=== PATIENT | female | born 1960 | race Caucasian/White ===

== ENCOUNTER 2023-05-24 16:14 | Emergency (ER) | payer SELFPAY ==
[2023-05-24 16:44] VITALS: BP 118/76; PULSE 84; RESP 19; TEMP 36.7; O2SAT 97; BMI 26.6
--- NOTE | 2023-05-24 16:49 | XRR_ITS ---
PROCEDURE INFORMATION: Exam: XR Left Knee Exam date and time: 05/24/2023 5:20 PM Age: 63 years old Clinical indication: Injury or trauma; Fall TECHNIQUE: Imaging protocol: Radiologic exam of the left knee. Views: 1 or 2 views. COMPARISON: No relevant prior studies available. FINDINGS: Bones/joints: There is a punch comminuted fracture of the lateral tibial plateau exiting the tibial metaphysis and between both tibial intercondylar spines. There is a lipohemarthrosis left knee joint. No visualized fracture of the femur patella or proximal fibula. Soft tissues: There is soft tissue edema adjacent to the tibia fracture. XR/XR knee LT 1-2V [id number] IMPRESSION: There is a punch comminuted fracture of the lateral tibial plateau exiting the tibial metaphysis and between both tibial intercondylar spines.
--- NOTE | 2023-05-24 16:49 | XRR_ITS ---
PROCEDURE INFORMATION: Exam: XR Left Tibia and Fibula Exam date and time: 05/24/2023 5:30 PM Age: 63 years old Clinical indication: Injury or trauma; Fall TECHNIQUE: Imaging protocol: Radiologic exam of the left tibia and fibula. Views: 2 views. COMPARISON: CR (LOW EXM, ) 05/24/2023 5:20 PM FINDINGS: Bones/joints: There is a markedly comminuted fracture of the distal tibial metadiaphysis with marked comminution of the articular surface of the tibiotalar joint. There is also a nondisplaced fracture of the posterior malleolus and transverse fracture of the distal fibula. Comminuted and impacted punch fracture of the lateral tibial plateau at the knee joint is also visualized. No additional fracture of the proximal or midshaft fibula. No dislocation. Soft tissues: There is soft tissue edema adjacent to both the proximal and distal tibia fractures. XR/XR tibia fibula LT 2V [id number] IMPRESSION: 1. There is a markedly comminuted fracture of the distal tibial metadiaphysis with marked comminution of the articular surface of the tibiotalar joint. There is also a nondisplaced fracture of the posterior malleolus and transverse fracture of the distal fibula. 2. Comminuted and impacted punch fracture of the lateral tibial plateau at the knee joint is also visualized. Please see the CT extremity report of the same day.
--- NOTE | 2023-05-24 16:49 | XRR_ITS ---
PROCEDURE INFORMATION: Exam: XR Left Foot Exam date and time: 05/24/2023 5:41 PM Age: 63 years old Clinical indication: Injury or trauma; Fall TECHNIQUE: Imaging protocol: Radiologic exam of the left foot. Views: 3 or more views. COMPARISON: CR (LOW EXM, ) 05/24/2023 5:35 PM FINDINGS: Bones/joints: Markedly comminuted fracture of the distal tibia extending into the tibiotalar joint is again identified. Transverse fracture of the distal fibula and nondisplaced posterior malleolar fracture. Lisfranc joint alignment is intact. No additional fracture in the midfoot or forefoot. Soft tissues: There is abundant soft tissue edema surrounding the ankle fractures. XR/XR foot LT min 3V* [id number] IMPRESSION: 1. Markedly comminuted fracture of the distal tibia extending into the tibiotalar joint is again identified. Transverse fracture of the distal fibula and nondisplaced posterior malleolar fracture. 2. No additional fracture in the midfoot or forefoot.
--- NOTE | 2023-05-24 16:49 | XRR_ITS ---
PROCEDURE INFORMATION: Exam: XR Left Ankle Exam date and time: 05/24/2023 5:35 PM Age: 63 years old Clinical indication: Injury or trauma; Fall TECHNIQUE: Imaging protocol: Radiologic exam of the left ankle. Views: 3 or more views. COMPARISON: CR (LOW EXM, ) 05/24/2023 5:30 PM FINDINGS: Bones/joints: There is a markedly comminuted and impacted fracture of the distal central and medial tibia plafond with marked deformity of the articular surface of the tibiotalar joint. Multiple fracture lines are also identified in the distal tibial metadiaphysis. There is a transverse fracture of the distal fibula and nondisplaced fracture of the posterior malleolus. No dislocation. No osteochondral lesion of the talus. Soft tissues: There is abundant soft tissue edema. XR/XR ankle LT min 3V* [id number] IMPRESSION: 1. There is a markedly comminuted and impacted fracture of the distal central and medial tibia plafond with marked deformity of the articular surface of the tibiotalar joint. 2. There is a transverse fracture of the distal fibula and nondisplaced fracture of the posterior malleolus.
[2023-05-24] MEDS: ibuprofen 800 mg tablet PO (17:11)
[2023-05-24 17:56] VITALS: O2SAT 99
--- NOTE | 2023-05-24 17:59 | CTR_ITS ---
PROCEDURE INFORMATION: Exam: CT Left Lower Extremity Without Contrast Exam date and time: 05/24/2023 6:19 PM Age: 63 years old Clinical indication: Injury or trauma; Fall; Blunt trauma; Left; Injury details: Patient tripped and fell on ground today. Fractures to both knee and ankle. ; Additional info: Tibial plateau fracture, bimalleolar versus pilon fracture TECHNIQUE: Imaging protocol: CT of the left lower extremity without contrast was performed. Radiation optimization: All CT scans at this facility use at least one of these dose optimization techniques: automated exposure control; mA and/or kV adjustment per patient size (includes targeted exams where dose is matched to clinical indication); or iterative reconstruction. REPORTING DATA: Count of CT and Cardiac NM exams in prior 12 months: This patient has received 0 known CTs and 0 known cardiac nuclear medicine studies in the 12 months prior to the current study. COMPARISON: CR (LOW EXM, ) 05/24/2023 5:41 PM RADIATION DOSE METRICS: Total DLP (mGy-cm): 880.41 FINDINGS: Bones/joints: There is a lipohemarthrosis of the knee joint. There is a comminuted dive punch fracture of the lateral tibial plateau with maximal depression of the articular surface measuring 5 mm. Fracture of the lateral tibial plateau exits the metaphysis of the tibia and extends into the knee joint through both intercondylar spines. Coronal images also demonstrate marked subchondral density paralleling the articular surface of the medial tibia compatible with microtrabecular impaction fracture without violation of the articular cortex or significant depression of the articular surface. There is and intra-articular markedly comminuted and impacted fracture of the distal tibia with marked destruction of the majority of the of the articular surface. Maximal depression of the articular surfaces at the ankle joint is 1 cm and there is a large divot of the central and medial tibial articular surface measuring 2.4 x 2.5 cm. There is medial angulation and comminution of the medial malleolus. There is a portion of the anterolateral articular surface of the tibia that is intact measuring 3.1 x 2.7 cm. Posterior malleolar fracture is noted with less than 2 mm depression of the articular surface. There is a comminuted fracture of the distal fibula metaphysis. No acute fracture of the visualized talus or calcaneus. No fracture of the proximal or midshaft fibula. No acute fracture of the femur or patella. There is lateral tilting and subluxation of the patella. Soft tissues: There is abundant soft tissue edema adjacent to the multiple fractures. Other findings: Segond type fracture fragment is noted lateral to the tibia. CT/CT lower leg LT wo con* [id number] IMPRESSION: 1. There is a comminuted punch fracture of the lateral tibial plateau with maximal depression of the articular surface measuring 5 mm. This fracture exits through the tibial spines and lateral tibial metaphysis. 2. Coronal images also demonstrate marked subchondral density paralleling the articular surface of the medial tibia compatible with microtrabecular impaction fracture without violation of the articular cortex or significant depression of the medial articular surface. 3. There is and intra-articular markedly comminuted and impacted/ punch fracture of the distal tibia with marked destruction of the majority of the of the articular surface. Maximal depression of the articular surfaces at the ankle joint is 1 cm and there is a large divot of the central and medial tibial articular surface measuring 2.4 x 2.5 cm. 4. Comminuted fracture distal fibula. No fracture of the proximal fibula.
[2023-05-24 18:47] VITALS: RESP 18
--- NOTE | 2023-05-24 18:47 | ED_ITS ---
HPI - Extremity Problem General: Chief complaint: Extremity Injury, Lower Stated complaint: LT ankle/Knee injury Time Seen by Provider: 05/24/23 16:49 History of Present Illness: Vale Germain is a 63-year-old female that presents to the emergency department with complaints of left ankle and knee pain. Patient reports that she stepped into a hole and felt/heard a loud pop. She had immediate pain in the ankle and knee and was unable to get up unassisted. Patient was unable to ambulate. She is usually ambulatory at baseline without assistive devices. Patient has swelling noted to the lateral aspect of the ankle with ecchymosis present There are no open wounds Neurovascularly intact Associated symptoms: Deny chest pain, fever(s) or rash Review of Systems General: Reports: 10 or more systems reviewed and unremarkable except in HPI and below Const: Denies: fever(s), chills, change in appetite, change in weight, fatigue or malaise Eyes: Denies: change in vision, eye discomfort, eye discharge or eye redness ENMT: Denies: throat pain, enlarged tonsils, odynophagia, hoarseness, ear or mastoid pain, ear discharge, change in hearing, tinnitus, nasal discharge, nasal congestion, post nasal drip or sinus pain Card: Denies: chest pain, palpitations, irregular heart rhythm, edema, dyspnea on exertion, orthopnea or leg pain with exertion Resp: Denies: dyspnea, productive cough, non-productive cough, wheezing, stri maria luisa or chest congestion GI: Denies: abdominal pain, nausea, vomiting, dysphagia, diarrhea, constipation, bloating, GI cramping or hematochezia : Denies: flank pain, difficulty voiding, dysuria, urinary frequency, urinary urgency, urinary hesitancy, oliguria or hematuria Musc: Denies: neck pain, back pain, extremity pain, joint pain, joint swelling, joint redness, joint warmth or muscle weakness Skin/Breast: Denies: rash, pruritus, erythema, photosensitivity or new lesions Neuro: Denies: headache(s), numbness in extremities, weakness in extremities, sensory changes, lack of coordination, difficulty walking, frequent falls, dizziness, confusion, Slurred speech present, difficulty communicating thoughts, seizure-like activity or involuntary movements Endo: Denies: polyuria, polydipsia or tired all the time Liborio/Lymph: Denies: easy bruising or easy bleeding Physical Exam Const: COMMON NORMALS: no acute distress, patient oriented x3 and alert GENERAL APPEARANCE: cooperative ORIENTATION/CONSCIOUSNESS: Yes awake, Yes oriented to person, Yes oriented to place and Yes oriented to time HENMT: COMMON NORMALS: normocephalic and atraumatic HEAD & SCALP: normocephalic and atraumatic FACE & SINUS: normal facial exam MOUTH: Normal oral and palatal mucosa present THROAT: posterior oropharynx normal Eye: COMMON NORMALS: Equal, round and reactive pupils present, EOMs intact bilaterally, conjunctivae normal and no scleral icterus GENERAL EYE: appearance normal, both eyes and all related structures ALIGNMENT: Yes alignment normal PERIORBITAL: periorbital findings normal CONJUNCTIVA: Yes conjunctivae normal PUPIL: Yes Equal, round and reactive pupils present Neck/C-Spine: COMMON NORMALS: full ROM GENERAL: Yes normal visual inspection Lymph: LYMPHATIC: no lymphadenopathy noted Chest: COMMONS NORMALS: normal inspection of the chest Breast/axilla inspection: Yes no chest deformity, asymmetry, normal contours, no nodules, masses, tenderness Resp: COMMON NORMALS: normal respiratory effort, No retractions, No use of accessory muscles and clear to auscultation bilaterally EFFORT & INSPECTION: Yes able to speak in complete sentences and Yes symmetric chest movement AUSCULTATION: clear to auscultation bilaterally Cardio: COMMON NORMALS: regular rate, regular rhythm and Peripheral pulses 2+ throughout RATE: regular rate RHYTHM: regular rhythm PERIPHERAL PULSES: Peripheral pulses 2+ throughout GI: COMMON NORMALS: Normal to inspection, nondistended, normoactive bowel sounds present, Soft to palpation, non-tender and No hepatosplenomegaly present INSPECTION: Yes normal to inspection AUSCULTATION: Yes normoactive bowel sounds PALPATION: Yes Soft to palpation and Yes No hepatosplenomegaly present RECTAL EXAM: deferred Extremity: COMMON NORMALS: normal to inspection NARRATIVE EXTREMITY EXAM: Left lower extremity: Skin is clean dry and intact ecchymosis noted to the lateral aspect of the left ankle. No tenting of skin. No lacerations. Patient is tender palpation over the knee and ankle. Patient is able to perform a straight leg raise Patient is able to flex and extend the knee to some degree although it causes considerable pain Patient is able to dorsiflex plantarflex the foot to some degree but this causes a lot of pain Patient is able to dorsiflex great toes Sensation is intact to light touch at medial, lateral, dorsal, plantar surface of the foot and first webspace DP pulses palpable and cap refills less than 3 seconds GENERAL: Yes normal exam except as noted Neuro: COMMON NORMALS: patient oriented x3 SENSORIUM/ORIENTATION: Yes alert, Yes oriented to person, Yes oriented to place and Yes oriented to time CRANIAL NERVES: Yes CN normal except as noted Psych: COMMON NORMALS: mental status grossly normal, Normal thought process present, cooperative, activity/motor behavior normal, denies homicidal ideation and denies suicidal ideation THOUGHT PROCESS: Normal thought process present Skin: COMMON NORMALS: no rashes or lesions noted, no wounds and turgor normal GENERAL SKIN EXAM: no rashes or lesions noted and turgor normal Procedures Orthopedic Splinting/Casting Injury #1: Lower Extremity Injury Location: knee and ankle Additional Comments: Patient has been diagnosed with a lateral tibial plateau fracture and a severely comminuted pilon fracture. She is placed in a posterior long-leg splint and will be transferred by EMS to [facility] where she will see Ortho trauma physician. Course Vital Signs: Vital signs: Vital Signs Temperature 98.1 F 05/24/23 16:44 Pulse Rate 73 05/24/23 18:57 Respiratory Rate 18 05/24/23 18:47 Blood Pressure 124/66 05/24/23 18:57 Pulse Oximetry 100 05/24/23 18:57 Oxygen Delivery Me thod Room Air 05/24/23 18:57 MDM - Extremity (Nontraumatic) Medical Decision Making Was evaluated in the emergency department for orthopedic injury/pain. Differential diagnoses include fracture, fracture dislocation, trimal/kenneth, none, tibial plateau, we will shaft fracture, Maisonneuve fracture. Contusion, abrasions, effusions Underwent XR imaging of the left lower extremity. Imaging occluded XR foot, ankle, tibia, knee. Imaging reveals comminuted fracture of the distal tibia; appears as though it could be a pilon fracture. She also has a tibial plateau fracture. CT of the lower extremity was obtained. I did speak with Dr. Carrillo about imaging. Recommends transfer to Ortho trauma provider. Did speak with patient about which direction she would like to go. She is ultimately decided [facility] in [place]. I have discussed imaging with Ortho trauma on-call and they have reviewed the imaging. They would be happy to see the patient if she was transferred. We are reaching out to transfer center to arrange transfer. Patient updated . Patient has been excepted by [facility] physician Dr. Priscila Fan with Ortho to see. Patient has agreed to transport by EMS with her following by private vehicle Posterior long-leg splint applied Lab Data Radiology Impressions Lower Extremity CT 05/24/23 17:59 IMPRESSION: 1. There is a comminuted punch fracture of the lateral tibial plateau with maximal depression of the articular surface measuring 5 mm. This fracture exits through the tibial spines and lateral tibial metaphysis. 2. Coronal images also demonstrate marked subchondral density paralleling the articular surface of the medial tibia compatible with microtrabecular impaction fracture without violation of the articular cortex or significant depression of the medial articular surface. 3. There is and intra-articular markedly comminuted and impacted/ punch fracture of the distal tibia with marked destruction of the majority of the of the articular surface. Maximal depression of the articular surfaces at the ankle joint is 1 cm and there is a large divot of the central and medial tibial articular surface measuring 2.4 x 2.5 cm. 4. Comminuted fracture distal fibula. No fracture of the proximal fibula. Discharge Plan Discharge Patient Disposition: Transfer to ED Clinical Impression: Closed fracture of tibial plateau, Closed fracture of lateral malleolus, Closed pilon fracture Condition: Stable Referrals: Alisa De León PA [Primary Care Provider] - Coding Level of Care Code ED [employer] for Vivienne Fontanez
[2023-05-24 18:57] VITALS: BP 124/66; PULSE 73; O2SAT 100
[2023-05-24 20:36] VITALS: BP 112/74; PULSE 77; RESP 18; O2SAT 95
== END 2023-05-24 21:58 ==
PROVIDERS: Emergency Provider Nurse Practitioner; PCP Physician Assistant
DX: S82.252A Displaced comminuted fracture of shaft of left tibia, initial encounter for closed fracture (principal); S82.872A Displaced pilon fracture of left tibia, initial encounter for closed fracture; S82.62XA Displaced fracture of lateral malleolus of left fibula, initial encounter for closed fracture; W18.42XA Slipping, tripping and stumbling without falling due to stepping into hole or opening, initial encounter
CPT/HCPCS: 29505; 73560; 73590; 73610; 73630; 73700; 99284

== ENCOUNTER 2023-07-23 12:41 | Outpatient (CLI) | payer SELFPAY ==
--- NOTE | 2023-07-23 12:45 | XR_ITS ---
WS: [id number] SCREENING DEXA SCAN [employer] CLINICAL INFORMATION: Postmenopausal COMPARISON: None. FINDINGS: The L1-L4 bone mineral density measures 1.029 g/cm2. This corresponds to a T score score of -1.3 and Z score of 0.1. Left femoral neck bone mineral density measures 0.712 g/cm2. This corresponds to a T score of -2.3 an d Z score of -1.3. Right femoral neck bone mineral density measures 0.692 g/cm2. This corresponds to a T score -2.5of an d Z score of -1.5. Mean femoral neck bone mineral density measures 0.702 g/cm2. This corresponds to a T score of -2.4 an d Z score of -1.4. IMPRESSION: Osteopenia lumbar spine. Osteopenia femoral necks at the upper end of the range approaching osteoporo sis. Patient's FRAX calculated 10 year probability for major osteoporotic fracture is 24.3% and osteoporot ic hip fracture is 6.5%.
== END 2023-07-23 12:42 | disposition home or self-care (01) ==
LOC: RAD 12:41
PROVIDERS: PCP Physician Assistant; Visit Provider Nurse Practitioner
DX: Z13.820 Encounter for screening for osteoporosis (principal); Z78.0 Asymptomatic menopausal state; M85.89 Other specified disorders of bone density and structure, multiple sites
CPT/HCPCS: 77080

== ENCOUNTER 2024-05-03 08:31 | Outpatient (CLI) | payer MEDICARE, SELFPAY ==
--- NOTE | 2024-05-03 08:36 | FL_ITS ---
WS: [id number] Examination: FL barium swallow [id number] Reason for Exam: DYSPHAGIA Date: May 03, 2024 Comparison: None. Findings: Initial single column thin barium esophagram was performed. Contrast passed freely through the esopha grey. No obstruction or stricture was appreciated. Next a air-contrast esophagram was performed with multiple obliquities. Barium passes freely from the mouth to the stomach without obstruction. There is no stricture or diverticulum. No hiatal hernia was appreciated. Reflux was not identified. FL/FL barium swallow [id number] Impression: There is no stricture or diverticulum identified. Esophagus appears grossly unr emarkable
== END 2024-05-03 08:32 | disposition home or self-care (01) ==
LOC: RAD 08:31
PROVIDERS: PCP Physician Assistant; Visit Provider Specialist
DX: R13.10 Dysphagia, unspecified (principal)
CPT/HCPCS: 74220

== ENCOUNTER 2024-06-30 08:36 | Outpatient (CLI) | payer MEDICARE, SELFPAY ==
--- NOTE | 2024-06-30 08:39 | MM_ITS ---
WS: [id number] DIAGNOSTIC BILATERAL DIGITAL BREAST TOMOSYNTHESIS MAMMOGRAPHY WITH CAD HISTORY: HX OF BREAST TUMOR COMPARISON: None available. TECHNIQUE: Bilateral craniocaudad, mediolateral oblique, and mediolateral views are submitted with to mosynthesis and SM. Computer aided detection utilized. Breast composition: The breasts are extremely dense, which lowers the sensitivity of mammography. Numerous scattered asymmetries and calcifications within each breast. No distortion. Breasts are very dense. MM/MM diag BI tomosynthesis [id number] IMPRESSION: BI-RADS: 2 - Benign FOLLOW UP: 1 Year Follow-up
== END 2024-06-30 08:37 | disposition home or self-care (01) ==
LOC: RAD 08:37
PROVIDERS: PCP Physician Assistant; Visit Provider Physician Assistant
DX: Z12.31 Encounter for screening mammogram for malignant neoplasm of breast (principal)
CPT/HCPCS: 77062; G0279

== ENCOUNTER 2025-02-01 07:40 | Outpatient (CLI) | payer MEDICARE, SELFPAY ==
--- NOTE | 2025-02-01 07:44 | CT_ITS ---
WS: [id number] LDCT LUNG CANCER SCREENING HISTORY: HX OF TOBACCO USE TECHNIQUE: Axial imaging performed from the apices to 1 cm below the costophrenic angles. Coronal and sagittal reformats are submitted with axial MIP series. All CT scans at [facility] use at least one of these dose optimization techniques: automated exposure control; mA and/or kV adjustment per patient size (includes targeted exams where dose is matched to clinical indication); or iterative reconstruction. DLP: 49.22 mGy.cm DIvol: Mean CTDIvol: 0.90 (mGy) COMPARISON: None available. Diagnostic quality: Satisfactory Lungs: Biapical pleural fibrosis and scarring. Pleural tags. There is scattered tiny micronodules throughout both lungs. No mass. Mild bronchial wall thickening and reticular nodular opacification in the anterior medial LEFT upper lobe. There is associated bronchiectasis. Linear scar at the RIGHT lung base. Heart: Normal size heart with no pericardial effusion.. Other findings: Mild atherosclerosis aorta. Normal size pulmonary artery. No pericardial or pleural effusions. Small hiatal hernia. Prior cholecystectomy. No adrenal mass. Mild prominence of the gastric wall. CT/CT lung screening [id number] IMPRESSION: LUNG-RADS: 2-Benign Appearance or Behavior FOLLOW UP: 12 Month: Continue annual screening with LDCT OTHER FINDINGS (S MODIFIER): None. Chronic appearing reticular nodular changes and bronchiectasis noted within the anterior medial LEFT upper lobe. May be from prior episodes of pneumonia or in flammation.
== END 2025-02-01 07:41 | disposition home or self-care (01) ==
PROVIDERS: PCP Physician Assistant; Visit Provider Physician Assistant
DX: Z12.2 Encounter for screening for malignant neoplasm of respiratory organs (principal); Z87.891 Personal history of nicotine dependence; J84.10 Pulmonary fibrosis, unspecified; J98.4 Other disorders of lung; R91.8 Other nonspecific abnormal finding of lung field; J47.9 Bronchiectasis, uncomplicated; I70.0 Atherosclerosis of aorta; K44.9 Diaphragmatic hernia without obstruction or gangrene; Z90.49 Acquired absence of other specified parts of digestive tract; R93.3 Abnormal findings on diagnostic imaging of other parts of digestive tract
CPT/HCPCS: 71271

== ENCOUNTER 2025-02-10 07:38 | Oncology outpatient (recurring) (ONCR) | payer MEDICARE, SELFPAY ==
[2025-02-10] MEDS: denosumab 60 mg SDV SUBCUT (08:44)
[2025-02-10 09:23] VITALS: BP 123/72; PULSE 66; RESP 16; TEMP 36.5; O2SAT 96
== END 2025-02-19 23:59 | disposition home or self-care (01) ==
PROVIDERS: PCP Physician Assistant; Visit Provider Physician Assistant
DX: M81.0 Age-related osteoporosis without current pathological fracture (principal); Z79.899 Other long term (current) drug therapy
CPT/HCPCS: 96372; J0897

== ENCOUNTER 2025-07-28 07:55 | Outpatient (CLI) | payer MEDICARE, SELFPAY ==
--- NOTE | 2025-07-28 08:01 | MM_ITS ---
WS: [id number] SCREENING DIGITAL BREAST TOMOSYNTHESIS MAMMOGRAM WITH CAD HISTORY: SCREENING COMPARISON: 06/30/2024 Bilateral CC and MLO with tomosynthesis and synthetic mammography submitted. Computer aided detection analyzed. Breast composition: The breasts are extremely dense, which lowers the sensitivity of mammography. There is an asymmetry measuring 17 x 12 mm seen only on the RIGHT CC projection. This is not identified on the MLO projection. There are a few benign calcifications. Breasts are very dense overall and nodular. MM/MM [facility] tomosynthesis [id number] IMPRESSION: BI-RADS: 0 - Incomplete: Need additional imaging evaluation FOLLOW UP: Need Additional Imaging RIGHT breast: Spot compression views (CC ). True ML. Ultrasound to follow if ab normality persists.
== END 2025-07-28 07:56 | disposition home or self-care (01) ==
LOC: RAD 07:58
PROVIDERS: PCP Physician Assistant; Visit Provider Physician Assistant
DX: Z12.31 Encounter for screening mammogram for malignant neoplasm of breast (principal); R92.343 Mammographic extreme density, bilateral breasts; R92.1 Mammographic calcification found on diagnostic imaging of breast; N64.89 Other specified disorders of breast
CPT/HCPCS: 77063; 77067

== ENCOUNTER 2025-08-16 13:04 | Outpatient (CLI) | payer MEDICARE, SELFPAY ==
--- NOTE | 2025-08-16 13:08 | XR_ITS ---
WS: [id number] SCREENING DEXA SCAN [employer] CLINICAL INFORMATION: AGE RELATED OSTEOPOROSIS WITHOUT CURRENT PATHOLOGICAL FRACTU COMPARISON: 2022 FINDINGS: The L1-L4 bone mineral density measures 1.03. This corresponds to a T score score of -1.4 and Z score of -0.1. Left femoral neck bone mineral density measures 0.662 g/cm2. This corresponds to a T score of -2.7 and Z score of -1.6. Right femoral neck bone mineral density measures 0.704 g/cm2. This corresponds to a T score -2.4of and Z score of -1.3. Mean femoral neck bone mineral density measures 0.683 g/cm2. This corresponds to a T score of -2.6 and Z score of -1.5. XR/XR DEXA axial skeleton* [id number] IMPRESSION: Osteopenia lumbar spine. Osteoporosis femoral necks. Patient's FRAX calculated 10 year probability for major osteoporotic fracture i s 48.2% and osteoporotic hip fracture is 11.6%. Bone density lumbar spine increased 0.2% Bone density femoral necks decrease -2.7%
== END 2025-08-16 13:05 | disposition home or self-care (01) ==
LOC: RAD 13:04
PROVIDERS: PCP Physician Assistant; Visit Provider Physician Assistant
DX: Z13.820 Encounter for screening for osteoporosis (principal); M81.0 Age-related osteoporosis without current pathological fracture; M85.89 Other specified disorders of bone density and structure, multiple sites
CPT/HCPCS: 77080

== ENCOUNTER 2025-08-22 07:42 | Oncology outpatient (recurring) (ONCR) | payer MEDICARE, SELFPAY ==
[2025-08-22] MEDS: denosumab 60 mg SDV (Infusion Clinic Only) SUBCUT (08:45)
--- NOTE | 2025-08-22 08:51 | PC.PHAR ---
patient arrived today with a prolia she brought from home. the medication was filled by our specialty pharmacy. medication was warm to the touch. patient stated she was instructed by specialty pharmacy to bring to our clinic for injection. when asked if she stored in the fridge she stated no and that she wasn't instructed to store in the fridge. I received authorization from florinda palafox at [facility] to dispense out of my stock at no charge.
== END 2025-09-21 23:59 | disposition home or self-care (01) ==
PROVIDERS: PCP Physician Assistant; Visit Provider Physician Assistant
DX: Z53.9 Procedure and treatment not carried out, unspecified reason; M81.0 Age-related osteoporosis without current pathological fracture; Z79.899 Other long term (current) drug therapy
CPT/HCPCS: 96372; J0897

== ENCOUNTER 2025-08-22 09:56 | Outpatient (CLI) | payer MEDICARE, SELFPAY ==
--- NOTE | 2025-08-22 10:02 | MM_ITS ---
WS: [id number] ADDITIONAL VIEWS RIGHT MAMMOGRAM WITH DIGITAL BREAST TOMOSYNTHESIS. RIGHT BREAST ULTRASOUND HISTORY: ABNORMAL MAMMOGRAM COMPARISON: 07/28/2025, 06/30/2024 RIGHT MAMMOGRAM: Spot compression views and true ML with digital breast tomosynthesis and SM. Breast composition: The breasts are extremely dense, which lowers the sensitivity of mammography. Partially obscured asymmetry in the medial upper RIGHT breast persists. The asymmetry measures 12 x 7 x 11 mm at a mid to posterior depth. There are a few additional calcifications present. Additional asymmetry towards 10-11:00 RIGHT breast. Ultrasound to be performed of both of these areas. RIGHT BREAST ULTRASOUND 2-D and color Doppler imaging submitted. Breasts are extremely dense by ultrasound. There is a large amount of shadowing and dense tissue. No mass identified. There are a few small dilated ducts near the nipple. No abnormality at 10 or 11:00 or along the medial upper RIGHT breast. The asymmetry seen on mammography is probably dense patch of f ibroglandular tissue. MM/MM diag RT tomosynthesis [id number] IMPRESSION: BI-RADS: 2 - Benign FOLLOW UP: 1 Year Follow-up Return to annual screening mammography.
== END 2025-08-22 09:57 | disposition home or self-care (01) ==
LOC: RAD 09:57
PROVIDERS: PCP Physician Assistant; Visit Provider Physician Assistant
DX: R92.8 Other abnormal and inconclusive findings on diagnostic imaging of breast (principal); R92.343 Mammographic extreme density, bilateral breasts; N64.89 Other specified disorders of breast
CPT/HCPCS: 76642; 77061; G0279